=== PATIENT | female | born 1975 | race Caucasian/White ===

== ENCOUNTER 2020-10-16 07:43 | Emergency (ER) | payer OTHER ==
[~2020-10-16] VITALS: Ht 157.5 cm; Wt 74.8 kg
[2020-10-16 07:43] VITALS: BP_SYST 145
--- NOTE | 2020-10-16 07:43 | NUR ---
BROUGHT BACK TO BED #7 AND TRIAGED. REPORT GIVEN TO NURSE
--- NOTE | 2020-10-16 07:48 | NUR ---
Arielle griffiths in ED - 10/16/20 at 0826 by SEBASTIEN PT TRIAGED AND BROUGHT BACK TO BED #7, REPORT GIVEN TO CRISTIN
--- NOTE | 2020-10-16 07:50 | NUR ---
PT STATES THAT SHE STARTED HAVING RIGHT LOWER QUADRANT PAIN JUST AFTER MIDNIGHT WHILE AT WORK, NOW NAUSEA STARTED. STATES PAINFUL TO STAND UP STRAIGHT. GUARDING RIGHT LOWER QUADRANT. DENIES CONSTIPATION OR DIARRHEA.
--- NOTE | 2020-10-16 08:10 | NUR ---
ER Dr. Heller at bedside examining patient.
[2020-10-16] MEDS ORDERED: NACL 0.9% 1,000 ML IV ONE (08:15)
[2020-10-16] MEDS ORDERED: ONDANSETRON HCL 4 MG/2 ML VIAL IVP ONE (08:15)
[2020-10-16] MEDS ORDERED: MORPHINE 2 MG/ML INJ. SYRINGE IVP ONE (08:15)
--- NOTE | 2020-10-16 08:20 | NUR ---
# 20 gauge angiocath placed to LAC. Use of asceptic technique. Opsite placed over site. Blood return noted. Blood for lab drawn from site. Flushed with 10 cc of normal saline. No evidence of infiltration noted. Patient tolerated well.
--- NOTE | 2020-10-16 08:45 | NUR ---
Patient transported to radiology via wheelchair, accompanied by staff.
[2020-10-16 08:54] LABS: EOSINOPHILS # (AUTO) 0.1 K/uL (0.0-0.4); EOSINOPHILS % (AUTO) 2.9 % (0.0-4.0); HEMATOCRIT 32.4 % (36-48); LYMPHOCYTES # (AUTO) 1.9 K/uL (1.0-5.5); LYMPHOCYTES % (AUTO) 38.7 % (20.5-51.5); MEAN CORPUSCULAR HEMOGLOBIN 23 pg (27-31); MEAN CORPUSCULAR HGB CONC 31 % (32-36); MEAN CORPUSCULAR VOLUME 73 fL (79.0-98.0); MONOCYTES # (AUTO) 0.3 K/uL (0.0-1.0); MONOCYTES % (AUTO) 6.8 % (1.7-9.3); NEUTROPHILS # (AUTO) 2.4 K/uL (1.8-7.7); NEUTROPHILS % (AUTO) 50.6 % (40.0-70.0); PLATELET COUNT (AUTO) 218 K/uL (130-430); RED BLOOD CELL COUNT(AUTO) 4.42 MIL/uL (4.2-6.2); RED CELL DISTRIBUTION WIDTH 18.6 % (9.0-15.0); WHITE BLOOD COUNT (AUTO) 4.8 K/uL (4.8-10.8)
[2020-10-16 08:57] LABS: CALCIUM 8.8 mg/dL (8.4-11.0); CREATININE 0.71 mg/dL (0.55-1.30); POTASSIUM 3.8 mmol/L (3.5-5.1)
[2020-10-16 09:03] LABS: TOTAL BILIRUBIN 0.4 mg/dL (0.0-1.0)
--- NOTE | 2020-10-16 11:35 | NUR ---
Pt to radiology via wheelchair for pelvis ultra sound.
[2020-10-16 12:40] VITALS: BP_SYST 136
--- NOTE | 2020-10-16 12:41 | NUR ---
Patient given written and verbal discharge instructions and verbalizes understanding. ER MD discussed with patient the results and treatment provided. Patient in stable condition. ID arm band removed. IV catheter removed intact and dressing applied, no active bleeding. Rx of [place] given. Patient educated on pain management and to follow up with PMD. Pain Scale 3. Opportunity for questions provided and answered. Medication side effect fact sheet provided.
== END 2020-10-16 12:41 | disposition home or self-care (01) ==
LOC: SED 07:43
DX: K59.00 Constipation, unspecified (principal); R10.31 Right lower quadrant pain
CPT/HCPCS: 36415; 74177; 76376; 76830; 76857; 80053; 81002; 81025; 83690; 85025; 96361; 96374; 96375; 99285; J2270; J2405; J7030; Q9967